=== PATIENT | male | born 1955 | race Two or more races ===

== ENCOUNTER 2019-12-16 11:51 | Day surgery (SDC) | payer MEDICARE ==
[~2019-12-16] VITALS: Ht 160 cm; Wt 52.1 kg
[~2019-12-16 11:51] MED LIST: LOSA25 PO; TRAM50 PO
== END 2019-12-16 13:36 | disposition home or self-care (01) ==
LOC: ORSCSDS 11:51
PROVIDERS: Surgery
PROC: 0DJD8ZZ Inspection of Lower Intestinal Tract, Via Natural or Artificial Opening Endoscopic (ICD-10-PCS; principal; 2019-12-16 13:00)
DX: Z12.11 Encounter for screening for malignant neoplasm of colon (principal); I10 Essential (primary) hypertension; Z79.899 Other long term (current) drug therapy
CPT/HCPCS: J2704; J7120

== ENCOUNTER 2020-01-29 12:39 | Emergency (ER) | payer MEDICARE ==
[~2020-01-29] VITALS: Ht 160 cm; Wt 52.6 kg
[2020-01-29] MEDS ORDERED: AMOCLA875 PO (16:20)
== END 2020-01-29 16:46 | disposition home or self-care (01) ==
LOC: ER 12:39
DX: S02.31XA Fracture of orbital floor, right side, initial encounter for closed fracture (principal); S02.831A Fracture of medial orbital wall, right side, initial encounter for closed fracture; S01.81XA Laceration without foreign body of other part of head, initial encounter; Z23 Encounter for immunization; Z79.899 Other long term (current) drug therapy; Z87.891 Personal history of nicotine dependence; W17.89XA Other fall from one level to another, initial encounter
CPT/HCPCS: 12011; 70450; 72125; 90471; 90714; 99283-25; A9270-GY

== ENCOUNTER 2020-02-04 09:07 | Emergency (ER) | payer MEDICARE ==
[~2020-02-04] VITALS: Ht 160 cm; Wt 52.6 kg
[~2020-02-04 09:07] MED LIST changes: +AMOCLA875 PO
[2020-02-04] MEDS ORDERED: IBUP600 PO (10:26)
[2020-02-04] MEDS ORDERED: Prednisone20 MG PO (13:07)
== END 2020-02-04 10:42 | disposition home or self-care (01) ==
LOC: ER 09:07
DX: M24.832 Other specific joint derangements of left wrist, not elsewhere classified (principal); Z88.5 Allergy status to narcotic agent; Z79.52 Long term (current) use of systemic steroids; Z79.899 Other long term (current) drug therapy; Z87.891 Personal history of nicotine dependence; W11.XXXA Fall on and from ladder, initial encounter
CPT/HCPCS: 29125; 73110; 99283-25; L3917